=== PATIENT | female | born 2000 | race American Indian/Alaskan Native ===

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

== ENCOUNTER 2022-03-18 14:48 | Emergency (ER) | payer OTHER ==
[~2022-03-18] VITALS: Ht 157.5 cm; Wt 48.0 kg
== END 2022-03-18 21:42 | disposition home or self-care (01) ==
LOC: ED 14:48
DX: O20.0 Threatened abortion (principal); O26.899 Other specified pregnancy related conditions, unspecified trimester; R10.9 Unspecified abdominal pain; O99.330 Smoking (tobacco) complicating pregnancy, unspecified trimester; F17.200 Nicotine dependence, unspecified, uncomplicated; Z3A.00 Weeks of gestation of pregnancy not specified
CPT/HCPCS: 36415; 76815; 76817; 80053; 81001; 84702; 84703; 85025; 86900; 86901

== ENCOUNTER 2025-02-13 16:51 | Emergency (ER) | payer SELFPAY ==
[~2025-02-13] VITALS: Ht 157.5 cm; Wt 55.6 kg
[2025-02-13] MEDS ORDERED: LIDOCAINE & ANTACID 35 ML BTL PO ONE (18:45)
[2025-02-13 20:30] VITALS: BP 122/74
--- NOTE | 2025-02-15 13:03 | EKG ---
[facility] [address] [facility] [place] [address] Signed Normal sinus rhythm Normal ECG When compared with ECG of 14-MAR-2017 02:09, No significant change was found Confirmed by Nico Flood DO ([id number]) on 02/15/2025 1:02:44 PM Electronically Signed By: NICO FLOOD DO 02/15/25 1303 PATIENT NAME: JAYDE HARDIN JUDE Electrocardiogram DATE OF : 00 PHYSICIAN: NICO FLOOD DO REPORT #: [id number] REPORT IS CONFIDENTIAL AND NOT TO BE RELEASED WITHOUT AUTHORIZATION
== END 2025-02-13 20:30 | disposition home or self-care (01) ==
LOC: ED 16:51
DX: R07.89 Other chest pain (principal); F17.200 Nicotine dependence, unspecified, uncomplicated
CPT/HCPCS: 71045; 93005; 93010; 99285-25

== ENCOUNTER 2025-04-25 23:04 | Emergency (ER) | payer OTHER ==
[~2025-04-25] VITALS: Ht 157.5 cm; Wt 54.9 kg
[2025-04-25] MEDS ORDERED: HYDROmorphone HCL 1 MG/ML SYR IV PRN (23:45)
[2025-04-26] MEDS ORDERED: AMP/SULBACTAM SOD 1.5 GM in SODIUM CHLORIDE 0.9% 100 ML IV ONE (00:15)
[2025-04-26] MEDS ORDERED: AMOXICILLIN/CLAVULANATE K 875 MG HOME.PACK PO ONE (01:30)
[2025-04-26] MEDS ORDERED: HYDROCODONE BIT/ACETAMINOPHEN 5/325 MG 1 TAB HOME.PACK PO PRN (01:30)
[2025-04-26] MEDS ORDERED: AMOX TR-K CLV1 EAC1 PO (01:31)
[2025-04-26] MEDS ORDERED: HYDROCODON-ACE1 EA10 PO (01:31)
[2025-04-26 02:15] VITALS: BP 136/71
[2025-04-26 02:38] LABS: N. GONORRRHOEAE BY PCR NOT DETECTED (NOT DETECT)
== END 2025-04-26 02:18 | disposition home or self-care (01) ==
LOC: ED 23:04
PROVIDERS: Emergency Medicine
DX: T71.193A Asphyxiation due to mechanical threat to breathing due to other causes, assault, initial encounter (principal); S10.93XA Contusion of unspecified part of neck, initial encounter; S20.219A Contusion of unspecified front wall of thorax, initial encounter; S21.051A Open bite of right breast, initial encounter; F17.200 Nicotine dependence, unspecified, uncomplicated; Y04.8XXA Assault by other bodily force, initial encounter; Y04.1XXA Assault by human bite, initial encounter
CPT/HCPCS: 36415; 70450; 70498; 71045; 84703; 96374; 96375; 99284-25; A9270; J0295; J1171; J2405; Q9967